=== PATIENT | male | born 1995 | race Two or more races ===

== ENCOUNTER 2017-09-25 22:44 | Emergency (ER) | payer OTHER ==
--- NOTE | 2017-09-25 23:02 | EDPHY ---
H & P Stated Complaint: Lip lac, facial pain. Time Seen by Provider: 09/25/17 22:48 HPI/ROS: HPI CHIEF COMPLAINT: Upper left lip laceration, medically cleared from [facility] HISTORY OF PRESENT ILLNESS: Patient 22-year-old male, otherwise healthy, no significant medical history presents emergency room with left upper lip laceration. Patient states that he sustained a left intraoral upper lip laceration 3 cm in length after he slipped and fell in the shower. He denies any other injuries. Past Medical History: Denies medical history Past Surgical History: Denies surgical history Social History: Denies drugs alcohol tobacco. Currently incarcerated. Family History: Noncontributory ROS REVIEW OF SYSTEMS: A comprehensive 10 point review of systems is otherwise negative aside from elements mentioned in the history of present illness. Exam Constitutional appears well nontoxic no acute distress triage nursing summary reviewed, vital signs reviewed, awake/alert. Eyes normal conjunctivae and sclera, EOMI, PERRLA. HENT oropharynx: Left upper lip intraorally on the left upper lip there is a 3 cm laceration present, otherwise midface stable, otherwise no significant head or neck trauma, normal inspection, atraumatic, moist mucus membranes, no epistaxis, neck supple/ no meningismus, no raccoon eyes. Respiratory clear to auscultation bilaterally, normal breath sounds, no respiratory distress, no wheezing. Cardiovascular rate normal, regular rhythm, no murmur, no edema, distal pulses normal. Gastrointestinal soft, non-tender, no rebound, no guarding, normal bowel sounds, no distension, no pulsatile mass. Genitourinary no CVA tenderness. Musculoskeletal no midline vertebral tenderness, full range of motion, no calf swelling, no tenderness of extremities, no meningismus, good pulses, neurovascularly intact. Skin pink, warm, & dry, no rash, skin atraumatic. Neurologic awake, alert and oriented x 3, AAOx3, moves all 4 extremities equally, motor intact, sensory intact, CN II-XII intact, normal cerebellar, normal vision, normal speech. Psychiatric normal mood/affect. Heme/Lymph/Immune no lymphadenopathy. Differential Diagnosis: Includes but is not limited to in a particular order lip laceration, soft tissue injury, contusion Medical Decision Making: Plan for this patient irrigate his wound cleaned out, and then patient's lip laceration need to be repaired. Re-evaluation: Laceration Repair Procedure: Verbal Consent was obtained, Under sterile conditions, The patient had lidocaine with epinephrine used approximately 4ccs to local anesthetize the Left upper lip laceration intra-oral 3CM Laceration. The wound was copiously irrigated with sterile fluid, the wound was explored for foreign bodies there were none visualized, the wound was explored with a sterile glove to the base. There are no deep structures involved, including no arterial injury. THREE 5.O absorbable interrupted Sutures were placed in this patient's laceration. He had good close approximation of the wound edges. He Tolerated this well. Patient understands watch wound closely keep it clean, intact, ice his wound. Watch for signs of infection Sutures are absorbable. Will does of for the next 2 weeks. Return precautions discussed. Source: Patient - Personal History Current Tetanus/Diphtheria Vaccine: Unsure Current Tetanus Diphtheria and Acellular Pertussis (TDAP): Unsure - Medical/Surgical History Hx Asthma: No Hx Chronic Respiratory Disease: No Hx Diabetes: No Hx Cardiac Disease: No Hx Renal Disease: No Hx Cirrhosis: No Hx Alcoholism: No Hx HIV/AIDS: No Hx Splenectomy or Spleen Trauma: No Other PMH: Denies - Social History Smoking Status: Heavy smoker Constitutional: Initial Vital Signs Temperature (C) 37.2 C 09/25/17 22:50 Heart Rate 86 09/25/17 22:50 Respiratory Rate 16 09/25/17 22:50 Blood Pressure 127/88 H 09/25/17 22:50 O2 Sat (%) 97 09/25/17 22:50 O2 Delivery Mode Room Air Allergies/Adverse Reactions: No Known Allergies Allergy (Unverified 09/25/17 22:55) Home Medications: Medication Instructions Recorded NK [No Known Home Meds] 09/25/17 Departure - Departure Disposition: Home, Routine, Self-Care Clinical Impression: Laceration Condition: Good Instructions: Laceration (ED), Care For Your Stitches (ED) Additional Instructions: 1. Medically cleared for [facility]. 2. Your sutures are absorbable. They will fall out in 2 weeks. Referrals: NONE *PRIMARY CARE P,. [Primary Care Provider] - As per Instructions
[2017-09-25 23:26] VITALS: BP 126/73
== END 2017-09-25 23:28 | disposition home or self-care (01) ==
PROC: 0CQ0XZZ Repair Upper Lip, External Approach (ICD-10-PCS; principal; 2017-09-25)
DX: S01.511A Laceration without foreign body of lip, initial encounter (principal); F17.200 Nicotine dependence, unspecified, uncomplicated; W18.2XXA Fall in (into) shower or empty bathtub, initial encounter; Y99.8 Other external cause status; Y93.89 Activity, other specified